=== PATIENT | male | born 1960 | race Caucasian/White ===

== ENCOUNTER 2023-07-20 09:04 | Outpatient (REF) | payer OTHER, SELFPAY ==
--- NOTE | 2023-07-20 15:20 | MHC.AU.MED ---
Medical Clearance for Hearing Instrumentation Date: 07/20/23 Patient Name: Ede Flowers Date of : 1960 Primary Care Provider: Referring Provider: Dov Richardson MD We have seen your patient on 07/20/23 and have determined that they are a candidate for amplification (See accompanying report). Specifically, they would benefit from: Hearing aid use in both ears There is a statute that addresses Medical Evaluation Requirements prior to fitting a patient with a hearing aid. According to [place] statute 265 CMR:6.03(1), (a) General. Except as provided in 265 CMR 6.03(1)(b), a auto research engineer shall not sell a hearing aid unless the prospective user has presented to the auto research engineer a written statement signed by a licensed physician that states that the patient's hearing loss has been medically evaluated and the patient may be considered a candidate for a hearing aid. The medical evaluation must have taken place within the preceding six months. Please note: Due to the [place] Statute referenced above, we cannot accept a signature other than that of a licensed physician. WOMEN[employer]S [employer]ACH and [place] signatures cannot be accepted. I am in agreement with the above recommendation. There is no medical contraindication for hearing instrumentation. Physician Signature Date Physician Name (Printed)
== END 2023-07-20 09:05 | disposition home or self-care (01) ==
LOC: HO.SH 09:04
PROVIDERS: Visit Provider Internal Medicine
DX: H90.3 Sensorineural hearing loss, bilateral (principal)
CPT/HCPCS: 92557; 92567; 92591

== ENCOUNTER 2023-09-27 14:50 | Outpatient (REF) | payer OTHER, SELFPAY | END 2023-09-27 14:51 | disposition home or self-care (01) | LOC: HO.HAP 14:50 | PROVIDERS: Visit Provider Internal Medicine | DX: Z46.1 Encounter for fitting and adjustment of hearing aid (principal); H90.3 Sensorineural hearing loss, bilateral | CPT/HCPCS: V5011; V5020; V5160; V5261 ==

== ENCOUNTER 2023-10-11 11:31 | Outpatient (REF) | payer OTHER, SELFPAY | END 2023-10-11 11:32 | disposition home or self-care (01) | LOC: HO.HAP 11:31 | PROVIDERS: Visit Provider Internal Medicine | DX: Z13.89 Encounter for screening for other disorder (principal) ==

== ENCOUNTER 2025-05-20 14:15 | Outpatient (REF) | payer MEDICARE, MEDICAID, SELFPAY ==
--- NOTE | 2025-05-20 15:50 | MHC.AU.HA3 ---
Hearing Instrument Follow-Up- Binaural Date of Visit: 05/20/25 Right Ear: Make, Model, Color, Serial Number: Oticon Real 2 miniRITE-R SN: [id number] Color: Steel mcnulty Dispatcher Radioactive Waste Disposal Repair Warranty: 09/21/2026 Dispatcher Radioactive Waste Disposal Loss and Damage Warranty: 09/21/2026 [facility] Service Plan: 09/26/2024 Battery Size: Rechargeable Wire Tester/Slim Tube: 2/85 [place]/Dome/CShell/SlimTip:8mm double bowers dome (no retention tail) Type of Wax Guard: miniFit Dispensed By: [facility] Date of Fittin09/27/2023 Left Ear: Make, Model, Color, Serial Number: Oticon Real 2 miniRITE-R SN: [id number] Color: Steel mcnulty Dispatcher Radioactive Waste Disposal Repair Warranty: 09/21/2026 Dispatcher Radioactive Waste Disposal Loss and Damage Warranty: 09/21/2026 [facility] Service Plan: 09/26/2024 Battery Size: Rechargeable Wire Tester/Slim Tube: 2/85 [place]/Dome/CShell/SlimTip: 8mm double bowers dome (no retention tail) Type of Wax Guard: miniFit Dispensed By: [facility] Date of Fittin09/27/2023 Follow-Up Summary: Reported intermittency and high battery drain in left WOOD. Microphones partially occluded. Cleaned both HAs (2). Replaced domes (2). Replaced wax guards (2). [id number] x6. Brushed/vacuumed microphones. Ran through dehumidifier. Listening check demonstrated HAs amplifying clearly. Could not replicate any intermittency in office. Connected to [employer] firmware update available in both HAs and poor battery health in left WOOD. Updated firmware. Replaced left rechargeable battery. Ede noted improvement in clarity after cleaning, will call if issues with intermittency persist. Recommendations: Hearing instrument follow-up or maintenance as needed. Please contact our clinic with any questions or concerns. Patient will call if problems persist. Diagnosis Code(s): Primary Diagnosis: H90.3 Bilateral Sensorineural Hearing Loss Signature: Provider: Seb Bell, [facility]
--- OUTSIDE RECORDS SUMMARY | 2025-05-20 18:01 | XMS_ITS ---
Author Name [facility] Organization Unknown Care Team Organization Name Specialty Phone Email Start Date End Da te [facility] Dov Richardson Primary Care 07/27/202212/20 [facility] Brad Mclaughlin Primary Care 03/29/2022
--- OUTSIDE RECORDS SUMMARY | 2025-05-20 18:01 | XMS_ITS | Clinical Summary ---
Author Organization [facility] Address [address] [address] Phone Care Team Providers Care [employer] Dynamics Manager Architect Name Role Phone Dov Richardson MD Primary Care Provider Allergies No known active allergies Medications acetaminophen (TYLENOL) 650 MG CR tablet Take 650 mg by mouth 3 (three) times a day as needed. 4 Active aspirin 81 MG EC tablet Take 81 mg by mouth. Active atorvastatin (LIPITOR) 20 MG tablet Take 20 mg by mouth daily. 4 Active bisacodyl (DULCOLAX) 5 mg EC tablet TAKE 2 TABLETS BY MOUTH RIGHT BEFORE BEGINNING THE BOWEL PREP. SEE INSTRUCTIONS PROVIDED BY THE OFFICE 5 Active cholecalciferol (VITAMIN D3) 2,000 unit tablet Take 2,000 Units by mouth. 4 Active cyanocobalamin, vitamin B-12, 1000 MCG tablet TAKE 1 TABLET BY MOUTH THREE TIMES WEEKLY 4 Active cyclobenzaprine (FLEXERIL) 5 MG tablet TKAE ONE TO TWO TABLETS BY MOUTH TWO TIMES A DAY NEEDED FOR MUSCLE SPASMS 4 Active omeprazole (PRILOSEC) 20 MG capsule Take 20 mg by mouth. 4 Active Active Problems No known active problems Social History Tobacco Use Types Packs/Day Years Used Date Smoking Tobacco: Never Smokeless Tobacco: Never Education Answer Date Recorded Are you interested in more education? Not on nettie e 12/10/2024 Are you concerned about learning? Not on file 12/10/2024 No 12/10/2024 No 12/10/2024 Digital Access Answer Date Recorded No 12/10/2024 No 12/10/2024 Reliable internet access at home? Not on file 12/10/2024 Device with a working camera? Not on file Sex and Gender Information Value Date Recorded Sex Assigned at Not on file Legal Sex Male 8:44 AM EDT Gender Identity Not on file Sexual Orientation Not on file Last Filed Vital Signs Vital Sign Reading Time Taken Comments Blood Pressure 121/75 12/10/2024 9:14 AM EDT Pulse 86 12/10/2024 9:14 AM EDT Temperature 36.6 C (97.9 F) 12/10/2024 9:14 AM EDT Respiratory Rate 16 12/10/2024 9:14 AM EDT Oxygen Saturation 99% 12/10/2024 9:14 AM EDT Inhaled Oxygen Concentration - - Weight 68 kg (150 lb) 12/10/2024 9:14 AM EDT Height - - Body Mass Index - - Plan of Treatment Health Maintenance Due Date Last Done Comments DEPRESSION SCREENING 1971 HEPATITIS C SCREENING 10/26/1977 HIV ONE-TIME SCREENING (18-65 YEARS) 10/26/1977 COLOGUARD 10/26/2004 COLONOSCOPY 10/26/2004 COLORECTAL CANCER SCREENING 10/26/2004 FIT TEST 10/26/2004 FOBT 10/26/2004 SIGMOIDOSCOPY 10/26/2004 VIRTUAL COLONOSCOPY 10/26/2004 INFLUENZA VACCINE (#1) 2024 , 02/03/2023, 02/26/2022, Additional history exists COVID-19 VACCINE (2024- season) 2025 02/04/2024, 11/15/2023, 02/09/2023, Additional history exists LIPID PANEL 04/03/2029 04/03/2024 Adult Td,Tdap Booster 10/26/2030 10/26/2020 , 06/08/2019, 06/26/2012 HEPATITIS A VACCINES Aged Out 04/01/2019, 09/28/19 19 No longer eligible based on patient's age to complete this topic ZOSTER VACCINES Completed 04/01/2019, 01/23/2019 RSV VACCINE Completed 03/23/2023 PNEUMOCOCCAL VACCINES (50+ years) Completed 07/22/2024 SMOKING STATUS SCREENING (Once After 26 Yrs) Completed 12/10/2024 HIB VACCINES Aged Out No longer eligi ble based on patient's age to complete this topic MENINGOCOCCAL VACCINES (ACWY) Aged Out No longer eligible based on patient's age to complete this topic MENINGOCOCCAL VACCINES (B) Aged Out N o longer eligible based on patient's age to complete this topic Medical Devices Not on file Insurance MEDICARE PART A & [place] [facility] [place] [facility] PART A & [place] Care Teams [employer] Dynamics Manager Architect Relationship Specialty Start Date End Date Dov Richardson MD [address] [place] [phone] PCP - General Internal Medicine 12/10/24 Additional Source Comments The information contained in this document represents components of the legal health record. It is not the complete legal health record.[facility]
--- OUTSIDE RECORDS SUMMARY | 2025-05-20 18:01 | XMS_ITS | Clinical Summary ---
Author Organization [address] Address [address] [place] [phone] Phone Care Team Providers Care Boil Off Machine Operator Cloth Name Role Phone Dov Richardson MD Primary Care Provider Allergies No known active allergies Medications omeprazole (PriLOSEC) [address] capsule Take 1 capsule (20 mg total) by mouth. 12/13/19 23 Active aspirin 81 mg EC tablet Take 1 tablet (81 mg total) by mouth 1 (one) time each day. Active acetaminophen (TYLENOL 8 HOUR) 650 mg 8 hr tablet Take 1 tablet (650 mg total) by mouth 3 (three) times a day if needed. 07/10/19 24 Active atorvastatin (LIPITOR) 20 mg tablet TAKE ONE TABLET BY MOUTH EVERY DAY 90 tablet 1 02/01/20 25 Active cyanocobalamin (VITAMIN B-12) 1,000 mcg tablet TAKE 1 TABLET BY MOUTH 3 TIMES WEEKLY 36 tablet 04/25/20 25 Active cholecalciferol (VITAMIN D-3) 50 mcg (2,000 unit) tablet TAKE 1 TABLET BY MOUTH 3 TIMES A WEEK 90 tablet 1 04/25/20 25 Active cyclobenzaprine (FLEXERIL) 5 mg tabletIndication s:Spondylosis of lumbar region without myelopathy or radiculopathy Take 1 tablet (5 mg total) by mouth at bedtime. 30 tablet 2 04/24/20 25 Active diclofenac (VOLTAREN) 1 % topical gel Apply 2 g topically 2 (two) times a day if needed (pain). 100 g 3 12/23/20 25 Active cholecalciferol (VITAMIN D-3) 50 mcg (2,000 unit) tablet Take 1 tablet (2,000 Units total) by mouth 3 (three) times a week. 02/05/20 24 025 Discontinued cyanocobalamin (VITAMIN B-12) 1,000 mcg tablet TAKE 1 TABLET BY MOUTH THREE TIMES WEEKLY 36 tablet 01/02/20 25 025 Discontinued cyclobenzaprine (FLEXERIL) 5 mg tabletIndication s:Spondylosis of lumbar region without myelopathy or radiculopathy Take 1 tablet (5 mg total) by mouth at bedtime. 30 tablet 2 02/01/20 25 025 Discontinued(R eorder) Active Problems Problem Noted Date Diagnosed Date Gastroesophageal reflux disease without esophagi tis 07/21/2024 Assessment & Plan (01/10/2025 10:05 AM EDT): Osteoarthritis of spine with radiculopathy, lumb ar region 07/21/2024 Assessment & Plan (01/10/2025 10:05 AM EDT): Spondylosis of lumbar region without myelopathy or radiculopathy 04/12/2024 B12 deficiency 02/19/2024 Assessment & Plan (01/10/2025 10:05 AM EDT): Prediabetes 02/19/2024 Assessment & Plan (01/10/2025 10:05 AM EDT): Orders: Hemoglobin A1c; Future Basic metabolic panel; Future Chronic hepatitis C without hepatic coma 024 Coronary artery calcification 07/10/2023 Assessment & Plan (01/10/2025 10:05 AM EDT): Orders: Hemoglobin A1c; Future Basic metabolic panel; Future Lung nodule 07/10/2023 Hydrocele, right 09/09/2021 Overview (04/12/2024): 11/10/21: [facility], bilteral hydrocele Assessment & Plan (01/10/2025 10:05 AM EDT): Onychomycosis of toenail 11/14/2016 Dental caries 10/15/2014 Mixed hyperlipidemia 10/22/2012 Assessment & Plan (01/10/2025 10:05 AM EDT): Hernia, incisional 06/26/2012 Overweight 05/03/2012 Encounters Date Type Department Care Team Description 03/18/2025 2:00 PM EDT Office Visit Adult Medicine [address] [phone] Dov Richardson MD Chronic right shoulder pain (Primary Dx); Neck pain from Last 3 Months Immunizations Immunization Administration Dates Next Due Hepatitis A Adult (Havrix; V aqta) 19yo and older 04/01/2019,09/27/2018 Influenza Quadravalent, MDCK , 0.5ml, preservative free (Flucelvax) 6mo and older 02/03/2023,01/26/2021 Influenza Quadravalent, MDCK , 0.5ml, with preservative (Flucelvax) 6mo and older 01/23/2019 Influenza trivalent, 0.5mL, preservative free (Fluarix; FluLaval; Fluzone) ages 6mo and older (Afluria) 3 years and older 01/09/2020,04/01/2019 Pneumococcal conjugate 20 va lent (Prevnar 20, PCV 20) 2mo and older 07/22/2024 RSV, bivalent, protein subun it RSVpreF, 0.5mL, Preservative Free (Arexvy) 50yo and older 03/23/2023 Tdap Tetanus diptheria acell ular pertussis (Boostrix; Adacel) 7yo and older 10/26/2020,06/08/2019,06/26/2012 Zoster recombinant (Shingrix ) 19yo and older 04/01/2019,01/23/2019 Surgical History Surgery Date Site/Laterality Comments OTHER SURGICAL HISTORY 2006 PROCEDURE: [facility] APPENDIX ABSC/PRITONITIS COLONOSCOPY 07/23/2014 PROCEDURE: HISTORICAL COLONOSCOPY; COMMENT: normal Medical History Medical History Date Comments Overweight(278.02) DX:Overweight (278.02) Hernia, incisional 06/26/2012 DX:Hernia, in cisional Shoulder pain, right 06/26/2012 DX:Shoulder pain, right Hyperlipidemia DX:Hyperlipidemi a Lumbar spondylosis DX:Lumbar spo ndylosis History of hepatitis C DX:Histor y of hepatitis C; COMMENT: Chronic Hepatitis C Genotype 1A. Treatment started 10/11/18 with Mavyret 100-40 mg tabs. Take 3 tabd daily for 8 weeks. End date 12/06/18. 06/17/2019: Viral load = 0 = SVR 24. Genotype 1A, 7.2 million units as of 2013. Hydrocele, right 09/09/2021 DX:Hydrocele, r ight Lung nodule DX:Lung nodule GERD (gastroesophageal reflux disease) Family History Medical History Relation Name Comments COPD Father Lymphoma Mother Hodgkin's Coronary artery disease Neg Hx Diabetes Neg Hx Other cancer Neg Hx Relation Name Status Comments Brother 1 Alive borderline HTN, asthma - intermitttent Brother 2 Alive healthy Daughter Alive [id number] Father (Age 75) COPD Maternal Grandfather Maternal Grandmother Mother (Age 47) [place] - Hodgk ins Paternal Grandfather [place] Paternal Grandmother (Age 100) U K Sister 1 Alive HTN, High Miley sterol Sister 2 Alive healthy Social History Tobacco Use Types Packs/Day Years Used Date Smoking Tobacco: Never Passive Smoke Exposure: Never Smokeless Tobacco: Never Tobacco Cessation:Counseling Given: Not Answered Alcohol Use Standard Drinks/Week Comments No 0 (1 standard drink = 0.6 oz pur e alcohol) Housing Instability Answer Date Recorde d Are you worried that in the next 2 months you may not have stable housing? No 01/03/2025 Food Access & Nutrition Answer Date Rec orded Do you have access to a vari ety of food including fruits and vegetables? Yes 01/03/2025 Access to Healthcare Answer Date Record ed Within the last 3 months, julianna w many times did you visit the emergency department for your medical care? 0 01/03/2025 Health Literacy Answer Date Recorded How often do you need to hav e someone help you when you read instructions, pamphlets, or other written material from your doctor or pharmacy? Never 01/03/2025 Caregiver: How often do you need to have someone help you when you read instructions, pamphlets, or other written material from your doctor or pharmacy? Not on file 01/03/2025 Financial Risk Answer Date Recorded How hard is it for you to pa y for the very basics like food, housing, medical care, and air conditioning / heating? Somewhat hard 01/03/2025 Transportation Answer Date Recorded Has the lack of transportati on kept you from meetings, work, or from getting things needed for daily living? No Has the lack of transportati on kept you from medical appointments or from getting medications? No 01/03/2025 Social Isolation Answer Date Recorded How often do you feel lonely or isolated from th ose around you? Rarely 01/03/2025 Food Risk Answer Date Recorded Within the past 12 months we worried whether our food would run out before we got money to buy more. Never true 01/03/2025 Within the past 12 months th e food we bought just didn't last and we didn't have money to get more. Never true 01/03/2025 Dependent Care Answer Date Recorded Do you need help finding or paying for care for your loved ones. For example, early childhood coordinator or elderly care for an older adult? No 01/03/2025 Education Answer Date Recorded Do you think completing more education or training, like finishing a GED, going to college, or learning a trade, would be helpful for you? No 01/03/2025 Employment and Income Answer Date Recor ded During the last four weeks, have you been actively looking for work? Patient declined 01/03/2025 Living Situation Answer Date Recorded What is your living situation? Unrecognized valu e 01/03/2025 Interpersonal Safety Answer Date Record ed Physical Abuse Unrecognized value 11/11/2024 Verbal Abuse Unrecognized value 11/11/2024 Sex and Gender Information Value Date Recorded Sex Assigned at Male 11/04/2024 2:22 PM EDT Legal Sex Male 4:08 PM EST Gender Identity Male 11/04/2024 2:04 PM EDT Sexual Orientation Straight 12/09/2024 7: 20 AM EDT Last Filed Vital Signs Vital Sign Reading Time Taken Comments Blood Pressure 114/78 03/18/2025 2:11 PM EDT Pulse 78 03/18/2025 2:11 PM EDT Temperature 36.4 C (97.6 F) 03/18/2025 2:11 PM EDT Respiratory Rate 14 03/18/2025 2:11 PM EDT Oxygen Saturation 98% 03/18/2025 2:11 PM EDT Inhaled Oxygen Concentration - - Weight 68 kg (150 lb) 03/18/2025 2:11 PM EDT Height 175.3 cm (5' 9 ) 03/18/2025 2:11 PM EDT Body Mass Index 22.15 03/18/2025 2:11 PM EDT Plan of Treatment Upcoming Encounters Date Type Department Care Team (Late st Contact Info) Description 08/25/2025 9:00 AM EDT Office Visit Adult Medicine [address] [phone] Dov Richardson MD [address] [place] [address] Health Maintenance Due Date Last Done Comments Hepatitis B Vaccines (1 of 3 - Risk 3-dose series) 2019 Hepatitis C Screening 04/30/2022 COVID-19 Vaccine ( season) 2025 01/27/2025, 02/04/2024, 11/15/2023, Additional history exists Falls Risk Assessment 11/11/2025 11/11/2024 Social Influencers of Health Screening 01/03/2026 01/03/2025 Hypertension/CHF/CAD Annual BMP Blood Test 01/06/2026 01/06/2025, 04/03/2024 Medicare Annual Wellness Visit 01/10/2026 01/10/2025 Cholesterol Screening (Lipid Panel) 01/06/2030 01/06/2025, 04/03/2024 DTaP,Tdap,and Td Vaccines (4 - Td or Tdap) 10/26/2030 10/26/2020, 06/08/2019, 06/26/2012 Colorectal Cancer Screening: Colonoscopy 11/11/2034 11/11/2024, 07/23/2014 Hepatitis A Vaccines Aged Out 04/01/2019, 09/28/19 19 No longer eligible based on patient's age to complete this topic Zoster Vaccines Completed 04/01/2019, 01/23/2019 RSV Immunization Adult Patients Completed 03/23/2023 Pneumococcal Vaccine: 50+ Years Completed 07/22/2024 Influenza Vaccine Completed 01/15/2025, , 02/03/2023, Additional history exists Depression Screening Completed 03/15/2025 HIB Vaccines Aged Out No longer eligi ble based on patient's age to complete this topic HPV Vaccines Aged Out No longer eligi ble based on patient's age to complete this topic IPV Vaccines Aged Out No longer eligi ble based on patient's age to complete this topic MMR Vaccines Aged Out No longer eligi ble based on patient's age to complete this topic Meningococcal ACWY Vaccine Aged Out N o longer eligible based on patient's age to complete this topic Meningococcal B Vaccine Aged Out No l onger eligible based on patient's age to complete this topic RSV Immunization Patients Under 20 months Aged Out No longer eligible based on patient's age to complete this topic Varicella Vaccines Aged Out No longer eligible based on patient's age to complete this topic Procedures Procedure Name Priority Date/Time Associated Diagnosis Comments BASIC METABOLIC PANEL Routine 01/06/2025 7:39 AM EDT Coronary artery calcification Prediabetes LIPID PANEL WITH REFLEX TO DIRECT LDL Routine 01/06/2025 7:39 AM EDT Mixed hyperlipidemia COLONOSCOPY Routine 11/11/2024 1:37 PM EDT Colon cancer screening from Last 3 Months or Most Recently Relevant to Health Maintenance Results * Lipid panel with reflex to direct LDL (01/06/2025 7:39 AM EDT) Cholesterol 146 0 - 200 mg/dL LAB CHEMISTRY METHOD 01/06/2025 11:21 AM EDT [facility] Triglycerides 87 0 - 150 mg/dL LAB CHEMISTRY METHOD 01/06/2025 11:21 AM EDT [facility] HDL 61 >=40 mg/dL LAB CHEMISTRY METHOD 01/06/2025 11:21 AM T [facility] LDL Calculated 68 0 - 100 mg/dL LAB CHEMISTRY METHOD 01/06/2025 11:21 AM EDT [facility] Comment:Estimated LDL Calcul ated using equation: Total cholesterol - HDL cholesterol - (Triglycerides/5) VLDL Cholesterol Chong 17.4 mg/dL LAB CHEMISTRY METHOD 01/06/2025 11:21 AM [facility] Non HDL Chol. (LDL+VLDL) 85 <145 mg/dL LAB CHEMISTRY METHOD 01/06/2025 11:21 AM [facility] Chol/HDL Ratio 2.4 0.0 - 4.4 LAB CHEMISTRY METHOD 01/06/2025 11:21 AM [facility] Blood Venous blood specimen / Unknown Venipuncture / Unknown 01/06/2025 7:39 AM EDT 01/06/2025 7:39 AM EDT us Dov Richardson MD LAB BLOOD ORDERABLES Final Result [facility] [address] [place] [address], [place] [phone] * Basic metabolic panel (01/06/2025 7:39 AM EDT) Sodium 139 133 - 145 mmol/L LAB CHEMISTRY METHOD 01/06/2025 11:18 AM [facility] Potassium 4.3 3.5 - 5.5 mmol/L LAB CHEMISTRY METHOD 01/06/2025 11:18 AM [facility] Chloride 106 96 - 110 mmol/L LAB CHEMISTRY METHOD 01/06/2025 11:18 AM [facility] CO2 30 21 - 32 mmol/L LAB CHEMISTRY METHOD 01/06/2025 11:18 AM [facility] Anion Gap 3 3 - 11 LAB CHEMISTRY METHOD 01/06/2025 11:18 AM [facility] Glucose 96 70 - 100 mg/dL LAB CHEMISTRY METHOD 01/06/2025 11:18 AM [facility] BUN 12 5 - 25 mg/dL LAB CHEMISTRY METHOD 01/06/2025 11:18 AM EDT [facility] Creatinine 0.73 0.70 - 1.30 mg/dL LAB CHEMISTRY METHOD 01/06/2025 11:18 AM EDT [facility] eGFR 101 >=60 mL/min/1. 73m2 LAB CHEMISTRY METHOD 01/06/2025 11:18 AM EDT [facility] Comment:Calculation based on the Chronic Kidney Disease Epidemiology Collaboration (CKD-EPI) equation refit without adjustment for race. BUN/Creatinine Ratio 16.4 LAB CHEMISTRY METHOD 01/06/2025 11:18 AM EDT [facility] Calcium 9.3 8.5 - 10.5 mg/dL LAB CHEMISTRY METHOD 01/06/2025 11:18 AM EDT [facility] Blood Venous blood specimen / Unknown Venipuncture / Unknown 01/06/2025 7:39 AM EDT 01/06/2025 7:39 AM EDT us Dov Richardson MD LAB BLOOD ORDERABLES Final Result [facility] [address] [place] [address], * COLONOSCOPY Anesthesia - [facility]; [facility] ENDOSCOPY (11/11/2024 1:37 PM EDT) Anatomical Region Laterality Modality Endoscopy 11/11/2024 1:14 PM EDT Impressions 11/11/2024 1:33 PM EDT - One 4 mm polyp in the sigmoid colon, removed with a cold snare. Resected and retrieved. - Diverticulosis in the sigmoid colon. - Internal hemorrhoids. Recommendation: - Await pathology results. - Repeat colonoscopy in 10 years for surveillance. Narrative 11/11/2024 1:33 PM EDT [facility] GI Patient Name: Asuncion Flowers Procedure Date: 11/11/2024 1:14 PM Date of : 1960 Age: 64 Gender: Male Note Status: Finalized Attending MD: Junito Santillan MD, Procedure Date No Time: 11/11/2024 Procedure: Colonoscopy Indications: Screening for colorectal malignant neoplasm Providers: Junito Santillan MD Referring MD: Junito Santillan MD Medicines: Monitored Anesthesia Care Complications: No immediate complications. Estimated blood loss: Minimal. Estimated Blood Loss: Estimated blood loss was minimal. Procedure: Pre-Anesthesia Assessment: - Prior to the procedure, a History and Physical was performed, and patient medications and allergies were reviewed. The patient is competent. The risks and benefits of the procedure and the sedation options and risks were discussed with the patient. All questions were answered and informed consent was obtained. Patient identification and proposed procedure were verified by the physician, the nurse, the manager credit risk and the plant technician in the pre-procedure area in the endoscopy suite. Mental Status Examination: alert and oriented. Airway Examination: normal oropharyngeal airway and neck mobility. Respiratory Examination: clear to auscultation. CV Examination: normal. Prophylactic Antibiotics: The patient does not require prophylactic antibiotics. Prior Anticoagulants: The patient has taken no anticoagulant or antiplatelet agents. ASA Grade Assessment: II - A patient with mild systemic disease. After reviewing the risks and benefits, the patient was deemed in satisfactory condition to undergo the procedure. The anesthesia plan was to use monitored anesthesia care (MAC). Immediately prior to administration of medications, the patient was re-assessed for adequacy to receive sedatives. The heart rate, respiratory rate, oxygen saturations, blood pressure, adequacy of pulmonary ventilation, and response to care were monitored throughout the procedure. The physical status of the patient was re-assessed after the procedure. After I obtained informed consent, the scope was passed under direct vision. Throughout the procedure, the patient's blood pressure, pulse, and oxygen saturations were monitored continuously. The Colonoscope was introduced through the anus and advanced to the cecum, identified by appendiceal orifice and ileocecal valve. The colonoscopy was performed without difficulty. The patient tolerated the procedure well. The quality of the bowel preparation was good. Findings: The perianal and digital rectal examinations were normal. A 4 mm polyp was found in the sigmoid colon. The polyp was semi-pedunculated. The polyp was removed with a cold snare. Resection and retrieval were complete. Estimated blood loss was minimal. A few small-mouthed diverticula were found in the sigmoid colon. Internal hemorrhoids were found during retroflexion. The hemorrhoids were Grade I (internal hemorrhoids that do not prolapse). Procedure Code(s): --- Professional --- 71421, Colonoscopy, flexible; with removal of tumor(s), polyp(s), or other lesion(s) by snare technique Diagnosis Code(s): --- Professional --- D12.5, Benign neoplasm of sigmoid colon CPT copyright 2020 [employer]. All rights reserved. The codes documented in this report are preliminary and upon tube drawer review may be revised to meet current compliance requirements. Junito Santillan MD 11/11/2024 1:33:37 PM This report has been signed electronically.Junito Santillan MD Number of Addenda: 0 Note Initiated On: 11/11/2024 1:14 PM Scope Withdrawal Time: 0 hours 8 minutes 16 seconds Scope In: 1:20:40 PM Scope Out: 1:31:58 PM Endoscopy Department at [facility] - [address] [place] [id number] Procedure Note Junito Santillan MD - 11/11/2024 [facility] GI Patient Name: Asuncion Flowers Procedure Date: 11/11/2024 1:14 PM Date of : 1960 Age: 64 Gender: Male Note Status: Finalized Attending MD: Junito Santillan MD, Procedure Date No Time: 11/11/2024 Procedure: Colonoscopy Indications: Screening for colorectal malignant neoplasm Providers: Junito Santillan MD Referring MD: Junito Santillan MD Medicines: Monitored Anesthesia Care Complications: No immediate complications. Estimated blood loss: Minimal. Estimated Blood Loss: Estimated blood loss was minimal. Procedure: Pre-Anesthesia Assessment: - Prior to the procedure, a History and Physicalwas performed, and patient medications and allergieswere reviewed. The patient is competent. The risks and benefits of the procedure and the sedation optionsand risks were discussed with the patient. Allquestions were answered and informed consent was obtained. Patient identification and proposed procedure were verified by the physician, the nurse, theanesthetist and the plant technician in the pre-procedure area in the endoscopy suite. Mental Status Examination: alertand oriented. Airway Examination: normal oropharyngeal airway and neck mobility. Respiratory Examination: clear to auscultation. CV Examination: normal. Prophylactic Antibiotics: The patient does notrequire prophylactic antibiotics. Prior Anticoagulants: The patient has taken no anticoagulant or antiplatelet agents. ASA Grade Assessment: II - A patient withmild systemic disease. After reviewing the risks and benefits, the patient was deemed in satisfactory condition to undergo the procedure. The anesthesia plan was to use monitored anesthesia care (MAC). Immediately prior to administration of medications, the patient was re-assessed for adequacy to receive sedatives. The heart rate, respiratory rate, oxygen saturations, blood pressure, adequacy of pulmonary ventilation, and response to care were monitored throughout the procedure. The physical status ofthe patient was re-assessed after the procedure. After I obtained informed consent, the scope was passed under direct vision. Throughout theprocedure, the patient's blood pressure, pulse, and oxygen saturations were monitored continuously. The Colonoscope was introduced through the anus and advanced to the cecum, identified by appendiceal orifice and ileocecal valve. The colonoscopy was performed without difficulty. The patient tolerated the procedure well. The quality of the bowel preparation was good. Findings: The perianal and digital rectal examinations were normal. A 4 mm polyp was found in the sigmoid colon. Thepolyp was semi-pedunculated. The polyp was removed with a cold snare. Resection and retrieval were complete. Estimated blood loss was minimal. A few small-mouthed diverticula were found in the sigmoid colon. Internal hemorrhoids were found duringretroflexion. The hemorrhoids were Grade I (internal hemorrhoids that do not prolapse). Procedure Code(s): --- Professional --- 01060, Colonoscopy, flexible; with removal of tumor(s), polyp(s), or other lesion(s) by snare technique Diagnosis Code(s): --- Professional --- D12.5, Benign neoplasm of sigmoid colon CPT copyright 2020 [employer]. All rights reserved. The codes documented in this report are preliminary and upon tube drawer reviewmay be revised to meet current compliance requirements. Junito Santillan MD 11/11/2024 1:33:37 PM This report has been signed electronically.Junito Santillan MD Number of Addenda: 0 Note Initiated On: 11/11/2024 1:14 PM Scope Withdrawal Time: 0 hours 8 minutes 16 seconds Scope In: 1:20:40 PM Scope Out: 1:31:58 PM Endoscopy Department at [address] [phone] IMPRESSION: - One 4 mm polyp in the sigmoid colon, removed with a cold snare. Resected and retrieved. - Diverticulosis in the sigmoid colon. - Internal hemorrhoids. Recommendation: - Await pathology results. - Repeat colonoscopy in 10 years forsurveillance. us Junito Santillan MD GI~PROCEDURE ORDERABLES Fin al Result from Last 3 Months or Most Recently Relevant to Health Maintenance Insurance MEDICARE [place]ICAID [place] Advance Directives * Full Code - Confirmed (Latest Code Status on File) Date Activated Date Inactivated Comments 01/10/2025 8:16 AM This code stat us was ascertained in the following way: Code status discussion: discussion with patient To update the patient's code status, place a code status order. Do not modify or discontinue any currently active code status orders. Care Teams Boil Off Machine Operator Cloth Relationship Specialty Start Date End Date Dov Richardson MD [address] [place] [address] PCP - General Internal Medicine 09/16/21
--- OUTSIDE RECORDS SUMMARY | 2025-05-20 18:01 | XMS_ITS | Encounter Summary ---
Author Organization [facility] Address [address] [place] [address] Care Team Providers Care Nuclear Radiation Engineer Name Role Phone Dov Richardson MD Primary Care Provider [phone] Encounter Details Date Type Department Care Team (Late Contact Info) Description 04/12/2024 Nurse Triage Adult Medicine [address] [phone] Dov Richardson MD [address] [place] [address] Social History Tobacco Use Types Packs/Day Years Used Date Smoking Tobacco: Never Smokeless Tobacco: Never Alcohol Use Standard Drinks/Week Comments No 0 (1 standard drink = 0.6 oz pur e alcohol) Sex and Gender Information Value Date Recorded Sex Assigned at Male 11/04/2024 2:22 PM EDT Legal Sex Male 4:08 PM EST Gender Identity Male 11/04/2024 2:04 PM EDT Sexual Orientation Straight 12/09/2024 7: 20 AM EDT documented as of this encounter Plan of Treatment Upcoming Encounters Date Type Department Care Team (Late Contact Info) Description 08/25/2025 9:00 AM EDT Office Visit Adult Medicine [address] [phone] Dov Richardson MD [address] [place] [address] documented as of this encounter Visit Diagnoses Not on filedocumented in this encounter Care Teams Nuclear Radiation Engineer Relationship Specialty Start Date End Date Dov Richardson MD [address] [place] [address] PCP - General Internal Medicine 09/16/21 documented as of this encounter
== END 2025-05-20 14:16 | disposition home or self-care (01) ==
LOC: HO.HAP 14:15
PROVIDERS: Visit Provider Internal Medicine
DX: Z46.1 Encounter for fitting and adjustment of hearing aid (principal); H90.3 Sensorineural hearing loss, bilateral
CPT/HCPCS: 92593; 99499